=== PATIENT | male | born 1960 | race Two or more races ===

== ENCOUNTER 2021-10-22 11:46 | Emergency (ER) | payer BC, OTHER ==
[~2021-10-22] VITALS: Ht 175.3 cm; Wt 82.0 kg
[2021-10-22] MEDS ORDERED: ONDANSETRON HCL 4MG/2ML INJ IV STA (12:13)
[2021-10-22] MEDS ORDERED: MORPHINE SULFATE 4 MG/ML CPJ (NOT FOR IM USE) IV STA (12:13)
[2021-10-22] MEDS ORDERED: SODIUM CHLORIDE 0.9% 1,000 ML IV ONE (12:15)
[2021-10-22] MEDS ORDERED: ETOMIDATE 2MG/ML 10ML VIAL IV ONE (14:45)
[2021-10-22] MEDS ORDERED: MORPHINE SULFATE 4 MG/ML CPJ (NOT FOR IM USE) IV ONE ×2 (14:45)
[2021-10-22] MEDS ORDERED: IBUP-2028 MT (16:12)
[2021-10-22] MEDS ORDERED: HYDR-4001 MT (16:12)
[2021-10-22 17:40] VITALS: BP 184/106
== END 2021-10-22 18:03 | disposition home or self-care (01) ==
LOC: ER 11:46
DX: S42.291A Other displaced fracture of upper end of right humerus, initial encounter for closed fracture (principal); S46.311A Strain of muscle, fascia and tendon of triceps, right arm, initial encounter; I10 Essential (primary) hypertension; Z98.890 Other specified postprocedural states; W10.8XXA Fall (on) (from) other stairs and steps, initial encounter; Y93.89 Activity, other specified; Y92.018 Other place in single-family (private) house as the place of occurrence of the external cause
CPT/HCPCS: 23650; 73030; 73060; 73080; 96361; 96374; 99152; 99285; J2270; J2405; J3490; J7030; L3670